=== PATIENT | male | born 1995 | race Asian ===

== ENCOUNTER 2016-05-14 17:28 | Emergency (ER) | payer OTHER ==
[~2016-05-14] VITALS: Ht 167.6 cm; Wt 77.0 kg
[~2016-05-14 17:28] MED LIST: NOCURR
[2016-05-14 21:55] VITALS: BP 122/80
== END 2016-05-14 22:15 | disposition home or self-care (01) ==
LOC: EMS 17:30
DX: R51 Headache (principal); R11.10 Vomiting, unspecified; Z87.891 Personal history of nicotine dependence
CPT/HCPCS: 99283

== ENCOUNTER 2023-12-29 14:08 | Emergency (ER) | payer OTHER ==
[~2023-12-29] VITALS: Ht 167.6 cm; Wt 81.8 kg
[2023-12-29 14:18] VITALS: TEMP 97.1
[2023-12-29 17:00] VITALS: BP 124/71; PULSE 69; RESP 17; O2SAT 99
[2023-12-29] MEDS: TraMADol HCL 50 MG TABLET PO ONE (17:43)
[2023-12-29] MEDS: LIDOCAINE 5% TRANSDERMAL PATCH TD ONE (17:43)
== END 2023-12-29 17:56 | disposition home or self-care (01) ==
LOC: EMS 14:08
DX: R07.81 Pleurodynia (principal); Z87.891 Personal history of nicotine dependence
CPT/HCPCS: 71101; 99283

== ENCOUNTER 2024-01-06 14:13 | Emergency (ER) | payer OTHER ==
[~2024-01-06] VITALS: Ht 167.6 cm; Wt 81.8 kg
[2024-01-06 14:19] VITALS: TEMP 98
[2024-01-06 15:40] VITALS: BP 114/72; PULSE 71; RESP 16; O2SAT 100
== END 2024-01-06 15:41 | disposition home or self-care (01) ==
LOC: EMS 14:13
DX: R07.89 Other chest pain (principal); Z87.891 Personal history of nicotine dependence
CPT/HCPCS: 99282; Z7502

== ENCOUNTER 2024-01-08 12:33 | Emergency (ER) | payer OTHER ==
[~2024-01-08] VITALS: Ht 165.1 cm; Wt 81.8 kg
[2024-01-08 12:38] VITALS: BP 111/54; PULSE 76; RESP 18; TEMP 98.3; O2SAT 100
[2024-01-08] MEDS: IBUPROFEN 400 MG TABLET PO ONE (15:41)
[2024-01-08] MEDS: ACETAMINOPHEN 325 MG TABLET PO ONE (15:41)
== END 2024-01-08 16:25 | disposition home or self-care (01) ==
LOC: EMS 12:33
DX: M79.674 Pain in right toe(s) (principal)
CPT/HCPCS: 99283

== ENCOUNTER 2024-01-14 14:32 | Emergency (ER) | payer OTHER ==
[~2024-01-14] VITALS: Ht 167.6 cm; Wt 81.8 kg
[2024-01-14 14:35] VITALS: TEMP 97.7
[2024-01-14] MEDS: IBUPROFEN 600 MG TABLET PO ONE (15:04)
[2024-01-14 15:05] VITALS: BP 132/71; PULSE 86; RESP 17; O2SAT 98
== END 2024-01-14 15:45 | disposition home or self-care (01) ==
LOC: EMS 14:33
DX: S91.201A Unspecified open wound of right great toe with damage to nail, initial encounter (principal); Z87.891 Personal history of nicotine dependence; Z98.890 Other specified postprocedural states; W22.8XXA Striking against or struck by other objects, initial encounter; Y93.89 Activity, other specified; Y92.89 Other specified places as the place of occurrence of the external cause; Y99.8 Other external cause status
CPT/HCPCS: 99282; Z7502; Z7610

== ENCOUNTER 2024-04-12 22:29 | Emergency (ER) | payer OTHER ==
[~2024-04-12] VITALS: Ht 167.6 cm; Wt 90.9 kg
[2024-04-12 22:33] VITALS: TEMP 98.6
[2024-04-13] LABS: BASOPHILS % (AUTO) 0.8 % (0.0-2.0); EOSINOPHILS % (AUTO) 1.4 % (1.0-6.0); HEMATOCRIT 47.7 % (41-53); HEMOGLOBIN 16.1 g/dL (13.5-17.5); LYMPHOCYTES # (AUTO) 2.4 K/uL (1.0-4.8); LYMPHOCYTES % (AUTO) 30.8 % (22.0-44.0); MEAN CORPUSCULAR HEMOGLOBIN 29.9 pg (26.0-34.0); MEAN CORPUSCULAR HGB CONC 33.8 G/dL (31.0-37.0); MEAN CORPUSCULAR VOLUME 89 fL (80-100); MONOCYTES # (AUTO) 0.5 K/uL (0.1-1.0); NEUTROPHILS # (AUTO) 4.7 K/uL (1.8-7.7); PLATELET COUNT (AUTO) 211 K/uL (150-450); RED BLOOD CELL COUNT(AUTO) 5.39 MIL/uL (4.50-5.90); RED CELL DISTRIBUTION WIDTH 13.5 % (11.5-14.5); WHITE BLOOD COUNT (AUTO) 7.7 K/uL (4.5-11.0)
[2024-04-13 00:16] LABS: ANION GAP 7 mmol/L (8-16); CALCIUM, TOTAL 9.1 mg/dL (8.8-10.5); CARBON DIOXIDE 31 mmol/L (22-29); CHLORIDE 97 mmol/L (98-107); CREATININE 0.92 mg/dL (0.60-1.30); GLOMERULAR FILTR. RATE CALC > 60 mL/min (>60); GLUCOSE,RANDOM 99 mg/dL (70-110); POTASSIUM 3.9 mmol/L (3.5-5.1); SODIUM SERUM 135 mmol/L (136-145); UREA NITROGEN, BLOOD 13 mg/dL (7-18)
[2024-04-13 00:26] LABS: TROPONIN I-HIGH SENSITIVITY 4 ng/L (<76)
[2024-04-13 00:51] LABS: B-TYPE NATRIURETIC PEPTIDE < 5 pg/mL (0-100)
[2024-04-13 01:45] VITALS: BP 110/60; PULSE 78; RESP 18; O2SAT 98
== END 2024-04-13 02:01 | disposition home or self-care (01) ==
LOC: EMS 22:30
DX: R07.89 Other chest pain (principal); Z87.891 Personal history of nicotine dependence
CPT/HCPCS: 71045; 80048; 83880; 84484; 85025; 93005; 99285; 36415-L1; 36415-TC

== ENCOUNTER 2024-07-06 13:58 | Emergency (ER) | payer OTHER ==
[~2024-07-06] VITALS: Ht 165.1 cm; Wt 81.8 kg
[2024-07-06 14:33] VITALS: BP 109/64; PULSE 82; RESP 18; TEMP 98; O2SAT 100
[2024-07-06 14:36] LABS: COVID AG,FIA SOURCE NASAL SWAB
[2024-07-06 15:00] LABS: SARS-COV2 (COVID) ANTIGEN,FIA Negative (Negative)
[2024-07-06 15:01] LABS: INFLUENZA TYPE A NEGATIVE FOR TYPE A (NEGATIVE); INFLUENZA TYPE B NEGATIVE FOR TYPE B (NEGATIVE)
[2024-07-06] MEDS: ONDANSETRON 4 MG TABLET PO ONE (16:21)
[2024-07-06] MEDS: DIPHENOXYLATE/ATROP 2.5-0.025 MG TABLET PO ONE (16:21)
[2024-07-06] MEDS: ACETAMINOPHEN 500 MG TABLET PO ONE (16:21)
== END 2024-07-06 17:08 | disposition home or self-care (01) ==
LOC: EMS 13:58
DX: R19.7 Diarrhea, unspecified (principal); R10.9 Unspecified abdominal pain; F12.90 Cannabis use, unspecified, uncomplicated; Z20.822 Contact with and (suspected) exposure to COVID-19
CPT/HCPCS: 99284; 87426; 87804; Q0162

== ENCOUNTER 2024-11-11 14:43 | Emergency (ER) | payer OTHER ==
[~2024-11-11] VITALS: Ht 167.6 cm; Wt 110.0 kg
[2024-11-11 14:44] VITALS: BP 117/69; PULSE 62; RESP 18; TEMP 98.2; O2SAT 94
[2024-11-11 15:34] LABS: PLATELET COUNT (AUTO) 215 K/uL (150-450); RED BLOOD CELL COUNT(AUTO) 5.50 MIL/uL (4.50-5.90); RED CELL DISTRIBUTION WIDTH 13.6 % (11.5-14.5); WHITE BLOOD COUNT (AUTO) 6.8 K/uL (4.5-11.0)
[2024-11-11 15:45] LABS: CALCIUM, TOTAL 8.8 mg/dL (8.8-10.5); CREATININE 1.13 mg/dL (0.60-1.30); GLOMERULAR FILTR. RATE CALC > 60 mL/min (>60); GLUCOSE,RANDOM 106 mg/dL (70-110); SODIUM SERUM 136 mmol/L (136-145); UREA NITROGEN, BLOOD 9 mg/dL (7-18)
[2024-11-11 16:01] LABS: APPEARANCE,URINE CLEAR (CLEAR); GLUCOSE, URINE (UA) NEGATIVE (NEGATIVE); LEUKOCYTE ESTERASE ,URINE NEGATIVE (NEGATIVE); NITRATE,URINE NEGATIVE (NEGATIVE); OCCULT BLOOD,URINE NEGATIVE (NEGATIVE); SPECIFIC GRAVITIY, URINE 1.015 (1.003-1.030)
== END 2024-11-11 16:34 | disposition home or self-care (01) ==
LOC: EMS 14:43
DX: R31.9 Hematuria, unspecified (principal); F12.90 Cannabis use, unspecified, uncomplicated; Z87.891 Personal history of nicotine dependence; Z98.890 Other specified postprocedural states
CPT/HCPCS: 80048; 81003; 82550; 85025; 99283

== ENCOUNTER 2025-01-22 20:03 | Emergency (ER) | payer OTHER ==
[~2025-01-22] VITALS: Ht 167.6 cm; Wt 100.0 kg
[2025-01-22 20:24] VITALS: BP 110/61; PULSE 64; RESP 16; TEMP 97.7; O2SAT 98
[2025-01-22 20:58] LABS: CALCIUM, TOTAL 8.9 mg/dL (8.8-10.5); CREATININE 0.82 mg/dL (0.60-1.30); GLOMERULAR FILTR. RATE CALC > 60 mL/min (>60); GLUCOSE,RANDOM 107 mg/dL (70-110); SODIUM SERUM 137 mmol/L (136-145); UREA NITROGEN, BLOOD 10 mg/dL (7-18)
[2025-01-22 21:01] LABS: PLATELET COUNT (AUTO) 187 K/uL (150-450); RED BLOOD CELL COUNT(AUTO) 5.53 MIL/uL (4.50-5.90); RED CELL DISTRIBUTION WIDTH 13.5 % (11.5-14.5); WHITE BLOOD COUNT (AUTO) 7.9 K/uL (4.5-11.0)
[2025-01-22] MEDS ORDERED: FAMO20 PO (22:57)
[2025-01-22] MEDS: SODIUM CHLORIDE 0.9% 1,000 ML IV ONE (23:08)
[2025-01-22] MEDS: METOCLOPRAMIDE HCL 5 MG/ML 2 ML VIAL IVP ONE (23:08)
[2025-01-22 23:12] LABS: PH,URINE DRUG SCREEN 6.0 (5.0-8.0)
[2025-01-22 23:15] LABS: ALCOHOL, URINE DRUG SCREEN NEGATIVE (NEGATIVE); AMPHET/METH SCREEN,URINE NEGATIVE (NEGATIVE); BARBITURATE SCREEN, URINE NEGATIVE (NEGATIVE); CANNABINOID SCREEN,URINE POSITIVE (NEGATIVE); COCAINE SCREEN,URINE NEGATIVE (NEGATIVE); METHADONE SCREEN, URINE NEGATIVE (NEGATIVE)
== END 2025-01-22 23:08 | disposition home or self-care (01) ==
LOC: EMS 20:03
DX: K29.70 Gastritis, unspecified, without bleeding (principal); R11.2 Nausea with vomiting, unspecified; F12.90 Cannabis use, unspecified, uncomplicated; Z98.890 Other specified postprocedural states; Z87.891 Personal history of nicotine dependence
CPT/HCPCS: 80048; 80307; 85025; 99283